=== PATIENT | female | born 1985 | race Caucasian/White ===

== ENCOUNTER 2019-11-03 01:03 | Emergency (ER) | payer OTHER ==
[~2019-11-03] VITALS: Ht 175.3 cm; Wt 59.0 kg
[2019-11-03 01:03] VITALS: BP_SYST 123
[2019-11-03 01:41] LABS: BASOPHILS # (AUTO) 0.1 K/uL (0.0-0.2); BASOPHILS % (AUTO) 0.4 % (0.0-2.0); EOSINOPHILS # (AUTO) 0.1 K/uL (0.0-0.4); EOSINOPHILS % (AUTO) 0.9 % (0.0-4.0); HEMOGLOBIN 13.3 g/dL (12.0-16.0); LYMPHOCYTES # (AUTO) 3.8 K/uL (1.0-5.5); MEAN CORPUSCULAR HEMOGLOBIN 31 pg (27-31); MONOCYTES # (AUTO) 0.6 K/uL (0.0-1.0); MONOCYTES % (AUTO) 4.3 % (1.7-9.3); RED BLOOD CELL COUNT(AUTO) 4.34 MIL/uL (4.2-6.2); WHITE BLOOD COUNT (AUTO) 13.9 K/uL (4.8-10.8)
[2019-11-03 01:46] LABS: HEMATOCRIT 40.5 % (36-48); LYMPHOCYTES % (AUTO) 27.1 % (20.5-51.5); MEAN CORPUSCULAR HGB CONC 33 % (32-36); MEAN CORPUSCULAR VOLUME 93 fL (79.0-98.0); NEUTROPHILS # (AUTO) 9.4 K/uL (1.8-7.7); NEUTROPHILS % (AUTO) 67.3 % (40.0-70.0); PLATELET COUNT (AUTO) 343 K/uL (130-430); RED CELL DISTRIBUTION WIDTH 18.5 % (9.0-15.0)
[2019-11-03 01:47] LABS: BILIRUBIN,URINE NEGATIVE (NEGATIVE); BLOOD, URINE 2+ (NEGATIVE); CLARITY/URINE CLEAR (CLEAR); COLOR,URINE YELLOW (YELLOW); GLUCOSE,URINE NEGATIVE (NEGATIVE); KETONES,URINE NEGATIVE (NEGATIVE); LEUKOCYTE ESTERASE ,URINE NEGATIVE (NEGATIVE); NITRITE, URINE NEGATIVE (NEGATIVE); PROTEIN URINE 3+ (NEGATIVE); UROBILINOGEN,URINE 0.2 (0.2-1.0)
[2019-11-03 01:57] LABS: BARBITURATE, URINE NEGATIVE (NEG <=200); BENZODIAZEPINE, URINE NEGATIVE (NEG <=150); CANNABINOID, URINE NEGATIVE (NEG <=50); COCAINE, URINE NEGATIVE (NEG <=150); METHAMPHETAMINES SCREEN,URINE NEGATIVE (NEG <=500); OPIATE, URINE NEGATIVE (NEG <=100); PHENCYCLIDINE SCREEN,URINE NEGATIVE (NEG <=25); UR TRICYCLIC ANTIDEPRESSANTS NEGATIVE (NEG <=300); URINE AMPHETAMINE NEGATIVE (NEG <=500); URINE METHADONE NEGATIVE (NEG <=200); URINE OXYCODONE SCREEN NEGATIVE (NEG <=100); URINE PROPOXYPHENE SCREEN NEGATIVE (NEG <=300)
[2019-11-03 02:00] LABS: ANION GAP 15 (5-15); CALCIUM 8.4 mg/dL (8.4-11.0); CHLORIDE 103 mmol/L (98-107); CREATININE 1.23 mg/dL (0.55-1.30); GLUCOSE 158 mg/dL (70-99); SODIUM SERUM 136 mmol/L (136-145); UREA NITROGEN, BLOOD 14 mg/dL (8-21)
[2019-11-03 02:02] LABS: BACTERIA,URINE MODERATE /HPF (None Seen); WBC,URINE 0-3 /HPF (0-3)
[2019-11-03 02:04] LABS: ALANINE AMINOTRANSFERASE 250 U/L (12-78); ALCOHOL, BLOOD 3 mg/dL (<10); ASPARTATE AMINOTRANSFERASE 284 U/L (10-37); TOTAL BILIRUBIN 0.2 mg/dL (0.0-1.0)
[2019-11-03 02:12] LABS: ACETAMINOPHEN < 1 ug/mL (1-30); GFR AFRICAN AMERICAN 65 mL/min (>90); POTASSIUM 2.9 mmol/L (3.5-5.1)
[2019-11-03] MEDS ORDERED: VANCOMYCIN HCL 1,000 MG in NS 250 ML IV ONE (03:15)
[2019-11-03] MEDS ORDERED: NACL 0.9% 1,000 ML IV ONE (03:15)
[2019-11-03] MEDS ORDERED: PIPERACILLIN/TAZO 3.375 GM in NS 50 ML IV ONE (03:15)
[2019-11-03] MEDS ORDERED: PIPERACILLIN/TAZOBACTAM 3.375 GM/VIAL (ZOSYN) IV ONE (03:52)
[2019-11-03] MEDS ORDERED: VANCOMYCIN HCL 1000 MG/VIAL IV ONE (03:52)
[2019-11-03] MEDS ORDERED: POTASSIUM CHLORIDE 20 MEQ TAB.PRT.SR PO ONE (04:45)
[2019-11-03] MEDS ORDERED: KCL 20 mEq in 100 mL (PREMIX) 100 ML IV ONE (04:45)
[2019-11-03 05:12] VITALS: BP_SYST 127
== END 2019-11-03 05:12 | disposition short-term general hospital (02) ==
LOC: EDBD 01:03 → SED 01:03
DX: I21.9 Acute myocardial infarction, unspecified (principal); A41.9 Sepsis, unspecified organism; E87.6 Hypokalemia
CPT/HCPCS: 36415; 70450; 71045; 80053; 80307; 81000; 82140; 82550; 83605; 84484; 85025; 87040; 87086; 93005; 96365; 96367; 99285; G0480; G0481; G0482; J2543; J3370; J7030